=== PATIENT | female | born 1935 | race Caucasian/White ===

== ENCOUNTER 2017-03-12 12:23 | Emergency (ER) | payer OTHER ==
[~2017-03-12 12:23] MED LIST: AMANTADINE HCL100 M1 PO; ASPIR 8181 MG PO; CARVEDILOL3.125 M1 PO; CLEOCIN HCL300 MG PO; FUROSEMIDE20 MG PO; KLOR-CON 1010 MEQ PO; LAC PO; LEVAQUIN750 MG PO; SYNTHROID0.15 MG PO; ZESTRIL5 MG PO
[2017-03-12 15:06] LABS: BASOPHIL % 0.3 % (0-2); PLATELET COUNT 178 x10^3mcL (130-400); RED CELL DISTRIBUTION WIDTH 13.7 % (11.5-14.5)
[2017-03-12 15:08] LABS: CARBON DIOXIDE 25.4 mmol/L (21-32); CHLORIDE SERUM 106 mmol/L (98-107); CREATININE SERUM 0.7 mg/dL (0.6-1.0); GLUCOSE SERUM 100 mg/dL (74-106); POTASSIUM SERUM 4.3 mmol/L (3.5-5.1); SODIUM SERUM 142 mmol/L (136-145)
[2017-03-12 15:13] LABS: ALBUMIN 3.4 g/dL (3.4-5.0); ALKALINE PHOSPHATASE 85 U/L (46-116); ALT/SGPT 18 U/L (14-59); AST/SGOT 16 U/L (15-37); BILIRUBIN TOTAL 0.3 mg/dL (0.20-1.00); TOTAL PROTEIN, SERUM 7.3 g/dL (6.4-8.2)
[2017-03-12 16:07] VITALS: BP 147/92
== END 2017-03-12 16:07 | disposition home or self-care (01) ==
LOC: ED 12:23
PROVIDERS: Emergency Medicine
DX: R13.10 Dysphagia, unspecified (principal); K46.9 Unspecified abdominal hernia without obstruction or gangrene; G20 Parkinson's disease; E07.9 Disorder of thyroid, unspecified; I11.0 Hypertensive heart disease with heart failure; I50.9 Heart failure, unspecified
CPT/HCPCS: 83880; J7030; Q9967

== ENCOUNTER 2017-08-30 20:52 | Emergency (ER) | payer OTHER ==
[~2017-08-30] VITALS: Ht 160 cm; Wt 81.6 kg
[2017-08-30 20:57] VITALS: Ht 160 cm; Wt 81.6 kg
[2017-08-30 22:16] LABS: BASOPHIL % 0.4 % (0-2); PLATELET COUNT 170 x10^3mcL (130-400); RED CELL DISTRIBUTION WIDTH 13.8 % (11.5-14.5)
[2017-08-30 22:25] LABS: microscopic required? NO
[2017-08-30 22:32] LABS: CALCIUM 8.7 mg/dL (8.5-10.1); CARBON DIOXIDE 27.2 mmol/L (21-32); CHLORIDE SERUM 106 mmol/L (98-107); CREATININE SERUM 0.6 mg/dL (0.6-1.0); GLUCOSE SERUM 91 mg/dL (74-106); SODIUM SERUM 140 mmol/L (136-145)
[2017-08-30 22:42] LABS: ALBUMIN 3.4 g/dL (3.4-5.0); ALKALINE PHOSPHATASE 86 U/L (46-116); ALT/SGPT 18 U/L (14-59); AST/SGOT 15 U/L (15-37); BILIRUBIN TOTAL 0.5 mg/dL (0.20-1.00); CHOLESTEROL 178 mg/dL (<200); LIPASE 101 IU/L (73-393); TOTAL PROTEIN, SERUM 6.6 g/dL (6.4-8.2); TRIGLYCERIDES 77 mg/dL (<150)
[2017-08-30 22:47] LABS: CHOLESTEROL/HDL RATIO 2.6; HDL CHOLESTEROL 69 mg/dL (40-60)
[2017-08-30 22:54] LABS: urine erythrocyte NEGATIVE (NEGATIVE)
[2017-08-30 23:10] LABS: FREE T4 1.46 ng/dL (0.76-1.46); FREE THYROXINE INDEX 3.8 ug/dL (1.4-4.5); T4(THYROXINE) 10.2 ug/dL (4.7-13.3)
[2017-08-30 23:12] LABS: T3 TOTAL 0.83 ng/mL
[2017-08-31 00:54] VITALS: BP 145/75
== END 2017-08-31 00:45 | disposition home or self-care (01) ==
LOC: ED 20:52
PROVIDERS: Specialist
DX: R53.1 Weakness (principal); G20 Parkinson's disease; E86.0 Dehydration; R06.02 Shortness of breath; I11.0 Hypertensive heart disease with heart failure; I50.9 Heart failure, unspecified
CPT/HCPCS: 83880; 84439; J7030